=== PATIENT | female | born 1990 | race Caucasian/White ===

== ENCOUNTER → 2016-10-11 | Outpatient (CLI) | payer BC, OTHER ==
[~2016-10-11] MED LIST: ACET50TA PO; IBUP80TA PO; VITAPRTA PO
--- NOTE | 2016-10-11 15:06 | REP ---
OB ULTRASOUND: Real-time sonographic evaluation of the gravid uterus is performed. There is a single living intrauterine gestation. The estimated gestational age is 19 weeks 6 days with EDC 03/01/2017. Biometry and Growth: BPD 47 mm = 20 weeks 1 day HC 171 mm = 19 weeks 5 days AC 147 mm = 20 weeks 0 days FL 33 mm = 20 weeks 1 day HC/AC ratio 1.16 within normal range. Estimated weight 329 grams, 55th percentile. SEEN/GROSSLY UNREMARKABLE Lateral ventricles Left choroid plexus cyst seen measuring 6 x 4 mm. Posterior fossa Yes Upper lip Yes Four-chamber heart Yes LVOT Yes RVOT Yes Stomach Yes Cord insertion Yes Three vessel cord Yes Kidneys Yes Bladder Yes Spine Yes Cervical length: Cervix closed and measures 4.3 cm in length. heart rate: 150 beats per minute. position: Breech. Placenta: Placenta is posterior and grade 0 with no previa or abruption. Amniotic fluid: Within normal limits. Cystic structure of the left ovary may represent a corpus luteum measuring 1.9 x 2.1 x 1.8 cm. Signed by Hai Gardner MD 10/11/2016 05:26 P
== END ==
LOC: M SMT 12:54
PROVIDERS: ATTEND Obstetrics & Gynecology
DX: Z36 Encounter for antenatal screening of mother (principal); Z3A.19 19 weeks gestation of pregnancy

== ENCOUNTER → 2016-11-27 | Outpatient (CLI) | payer BC, OTHER ==
[2016-11-27 13:16] LABS: BASO % 0.1 % (0.0-1.0); EOS # 0.1 K/mm3 (0.0-0.50); EOS % 1.2 % (0.0-3.0); LARGE UNSTAINED CELL # 0.2 K/mm3 (0.0-0.4); LYMPH # 1.5 K/mm3 (1.5-6.5); LYMPH % 22.7 % (24.0-44.0); MEAN CORPUSCULAR HEMOGLOBIN 23.5 pg (27.0-33.0); MEAN CORPUSCULAR HGB CONC 30.5 g/dl (32.0-36.5); MEAN CORPUSCULAR VOLUME 77.1 fl (80.0-96.0); MONO # 0.2 K/mm3 (0.0-0.8); MONO % 3.3 % (0.0-5.0); NEUTROPHILS # 4.5 K/mm3 (1.8-7.7); NEUTROPHILS % 69.7 % (36.0-66.0); PLATELET COUNT, AUTOMATED 242 k/mm3 (150-450); RED CELL DISTRIBUTION WIDTH 13.8 % (11.5-14.5); WHITE BLOOD COUNT 6.5 K/mm3 (4.0-10.0)
== END ==
LOC: M SMT 11:27
PROVIDERS: ATTEND Specialist
DX: Z34.82 Encounter for supervision of other normal pregnancy, second trimester (principal); Z36 Encounter for antenatal screening of mother; Z3A.00 Weeks of gestation of pregnancy not specified

== ENCOUNTER → 2017-02-05 | Outpatient (REF) | payer BC, OTHER | LOC: M LAB REF 13:04 | PROVIDERS: ATTEND Advanced Practice Midwife | DX: Z34.83 Encounter for supervision of other normal pregnancy, third trimester (principal) ==

== ENCOUNTER 2017-03-05 16:56 | Inpatient (IN) | payer BC, OTHER ==
[2017-03-05] VITALS (22 sets, daily range): BP systolic 102–137; BP diastolic 65–97
[~2017-03-05] VITALS: Ht 182.9 cm; Wt 112.0 kg
[2017-03-05] MEDS ORDERED: LACTATED RINGER'S 1000 ML IV STA (17:13)
[2017-03-05] MEDS ORDERED: PENICILLIN G POTASSIUM IV 5 MU in D5W MINI-BAG PLUS 100 ML IV STA (17:13)
--- NOTE | 2017-03-05 18:02 | HPE ---
DATE OF ADMISSION: 03/05/2017 Ashlyn is a 26-year-old 3, para 1-0-1-1 at 40-5/7 weeks gestation with an EDC of 02/28/2017, based on last normal period confirmed by first trimester ultrasound. She presents to labor and delivery today with report of onset of uncomfortable contractions that started at approximately 03:45 a.m. and have gotten progressively closer and more uncomfortable throughout the day. She does deny vaginal bleeding and leakage of fluid. Fetus has been active. care initiated at [facility] in the first trimester. course has been uncomplicated. OBSTETRICAL HISTORY: April 2015 she had a spontaneous vaginal delivery at 39-2/7 weeks gestation for a 7 pounds 11 ounce female. January 2016 she had a spontaneous miscarriage. OBSTETRICAL LABS: Blood type is A+, antibody screen negative, rubella immune, VDRL nonreactive. Urine culture no growth. Hep B surface antigen negative, HIV negative. Hep C antibody nonreactive. Gonorrhea and chlamydia negative. She did decline all genetic serum screening markers. Gestational diabetic screening 90. Group B streptococcus (GBS) is positive. PAST MEDICAL HISTORY: Seasonal allergies and history of an abnormal Pap. SURGERIES: None. FAMILY HISTORY: Noncontributory. SOCIAL HISTORY: The patient is . Her is at bedside and supportive. She is a nonsmoker. Denies alcohol or drug use. No history of sexually transmitted diseases (STDs). Denies history of abuse physical, sexual and emotional. ALLERGIES: No known drug allergies. CURRENT MEDICATIONS: - vitamins. OBJECTIVE: Temperature 98.3, pulse 71, respirations 18, blood pressure 137/97. heart rate is 140 with moderate variability, positive excels no decelerations observed. Carlo approximately every 5 minutes. Abdomen is gravid, cephalic presentation. Estimated weight 8 pounds. Sterile vaginal exam 4 cm dilated 80% effaced, minus two station, bulging bag of water, positive scant bloody show exam was performed in the office. ASSESSMENT: Intrauterine at 40-5/7 weeks. heart rate category one active labor. PLAN: Admit the patient to labor and delivery. Labs including a pre-eclamptic profile and a spot urine, intravenous (IV) fluid bolus. Start IV antibiotics for GBS prophylaxis. Patient may consider an epidural for her labor coping at this point. Once she has been treated post 4 hours for GBS prophylaxis I will consider artificial rupture or membranes (AROM) IV Pitocin to augment her labor. I do anticipate continued labor and a spontaneous vaginal delivery.
[2017-03-05] MEDS ORDERED: SUDA30TA PO (18:20)
[2017-03-05 18:25] LABS: MEAN CORPUSCULAR HEMOGLOBIN 21.3 pg (27.0-33.0); MEAN CORPUSCULAR HGB CONC 30.6 g/dl (32.0-36.5); MEAN CORPUSCULAR VOLUME 69.6 fl (80.0-96.0); RED CELL DISTRIBUTION WIDTH 16.2 % (11.5-14.5); WHITE BLOOD COUNT 10.1 K/mm3 (4.0-10.0)
[2017-03-05 19:35] LABS: ALT/SGPT 13 U/L (12-78); AST/SGOT 13 U/L (15-37); BILIRUBIN,TOTAL 0.2 MG/DL (0.2-1.0); CREATININE FOR GFR 0.63 MG/DL (0.55-1.02); GLOMERULAR FILTRATION RATE > 60.0 (>60); URIC ACID 2.7 MG/DL (2.6-6.0)
[2017-03-05] MEDS ORDERED: FENTANYL 2MCG/ML ROPIVACAINE 0.2% IN 0.9% NACL 200ML IVBAG As Ordered ONE (20:39)
[2017-03-05] MEDS ORDERED: FENTANYL/ROPIVACAINE/NACL BAG 200 ML EPIDURAL SCH (22:00)
[2017-03-05] MEDS ORDERED: NALOXONE INJ 0.4 MG/1 ML VIAL (J2310) IV PRN (22:00)
[2017-03-05] MEDS ORDERED: REFRIGERATOR IV KEYS XX PRN (22:00)
[2017-03-05] MEDS ORDERED: EPIDURAL COMMENT XX SCH (22:00)
[2017-03-05] MEDS ORDERED: EPIDURAL/PCA KEYS XX PRN (22:00)
[2017-03-05] MEDS ORDERED: ONDANSETRON 4MG/2ML VIAL (J2405) IV PRN (22:00)
[2017-03-05] MEDS ORDERED: LACTATED RINGER'S 1000 ML IV PRN (22:00)
[2017-03-05] MEDS ORDERED: ePHEDrine SULFATE 25 MG/5 ML(5MG/ML) SYRINGE IV PRN (22:00)
[2017-03-05] MEDS ORDERED: diphenhydrAMINE INJ 50MG/ML VIAL (J1200) IV PRN (22:00)
[2017-03-05] MEDS ORDERED: PENICILLIN G POTASSIUM IV 2.5 MU in D5W 100 ML IV SCH (22:00)
[2017-03-05] MEDS ORDERED: OXYTOCIN DRIP 30 UNITS in APPROPRIATE DILUENT 1 EA IV SCH (22:30)
[2017-03-06] VITALS (7 sets, daily range): BP systolic 117–146; BP diastolic 73–87
[2017-03-06] MEDS ORDERED: OXYTOCIN DRIP 30 UNITS in APPROPRIATE DILUENT 1 EA IV SCH (00:24)
[2017-03-06] MEDS ORDERED: ACETAMINOPHEN 500 MG TAB PO PRN (00:30)
[2017-03-06] MEDS ORDERED: MEASLES,MUMPS,RUBELLA VACCINE INJ (MMR-II) (90707) SC SCH (00:30)
[2017-03-06] MEDS ORDERED: METHYLERGONOVINE MALEATE 0.2 MG TAB PO PRN (00:30)
[2017-03-06] MEDS ORDERED: ANUSOL HC CREAM 30GM TOP PRN (00:30)
[2017-03-06] MEDS ORDERED: RHOGAM 300 MCG (1500 IU) INJ (J2790) IM SCH (00:30)
[2017-03-06] MEDS ORDERED: DIBUCAINE 1% OINTMENT 30GM TOP PRN (00:30)
[2017-03-06] MEDS ORDERED: DOCUSATE SODIUM 100 MG CAP PO PRN (00:30)
[2017-03-06 00:34] LABS: CORD GAS ABE V -2.4; CORD GAS O2 SAT V 82.2 %; CORD GAS PCO2 V 36.8 mmHg; CORD GAS PH V 7.394 UNITS; CORD GAS PO2 V 36.4 mmHg; CORD GAS SBC V 22.1 MEQ/L; CORD GAS TCO2 V 23.1 MEQ/L
--- NOTE | 2017-03-06 00:51 | DN ---
DATE: 03/06/2017 Ashlyn is a 26-year-old, 3, para 2-0-1-2 now, who was admitted to labor and delivery in active labor. She progressed to full dilation at 2330. She pushed to a normal spontaneous vaginal delivery of a live male in occiput anterior (OA) position with restitution to right occiput transverse (ROT) position at 2341. There was a nuchal cord times one loose that was reduced with somersault maneuver at the time of delivery. The shoulders delivered with gentle downward guidance, and the corpus immediately followed. The was placed on the maternal abdomen crying and active. His mouth and nares were bulb suctioned. The cord was clamped times two and cut by the father of the baby. A spontaneous expulsion of an intact placenta with 3-vessel cord by Valderrama mechanism was at 2346. Uterine hemostasis achieved with uterine fundal massage and intravenous (IV) Pitocin rapid infusion. Estimated blood loss 350 mL. Perineum and vagina inspected. Noted to have first-degree midline laceration and a right labial laceration. The laceration was repaired with #3-0 Rapide in the usual fashion. [place] male weighed 7 pounds 8 ounces, 3410 grams, scores 9 and 9. Family have named their son Jaylen. The mom plans to breastfeed. At the close of delivery, the lap counts, needle counts, and instrument counts were correct and verified.
[2017-03-06] MEDS: PRENATAL VITAMIN TAB PO SCH (08:51)
[2017-03-06] MEDS: IBUPROFEN 800 MG TAB PO PRN ×2 (08:52→23:47)
[2017-03-07 06:19] VITALS: BP 121/86
[2017-03-07] MEDS ORDERED: IBUP-1114 PO (07:43)
[2017-03-07] MEDS: PRENATAL VITAMIN TAB PO SCH (08:22)
[2017-03-07] MEDS ORDERED: ADACEL/BOOSTRIX VACCINE (DIPHTH/PERTUSS/ACELL/TETANUS)0.5ML SYR (90715) IM ONE (09:00)
== END 2017-03-07 10:10 | disposition home or self-care (01) | DRG 560 ==
LOC: M LDI 16:56 → M OBS 03-06 01:53
PROVIDERS: ADMIT Advanced Practice Midwife; ATTEND Advanced Practice Midwife
PROC: 10E0XZZ Delivery of Products of Conception, External Approach (ICD-10-PCS; principal; 2017-03-06)
PROC: 0HQ9XZZ Repair Perineum Skin, External Approach (ICD-10-PCS; 2017-03-06)
DX: O48.0 Post-term pregnancy (principal); O69.82X0 Labor and delivery complicated by other cord entanglement, without compression, not applicable or unspecified; Z37.0 Single live birth; Z3A.40 40 weeks gestation of pregnancy; Z79.899 Other long term (current) drug therapy; O70.0 First degree perineal laceration during delivery

== ENCOUNTER → 2017-11-28 | Outpatient (REF) | payer OTHER | LOC: M LAB REF 09:00 | DX: J02.9 Acute pharyngitis, unspecified (principal) | CPT/HCPCS: 87070 ==

== ENCOUNTER 2018-03-26 08:54 | Day surgery (SDC) | payer BC, OTHER ==
[2018-03-26] MEDS ORDERED: LIDOCAINE 1% MDV 20ML VIAL SQ (09:00)
[2018-03-26] MEDS: LR 1,000 ML IV (09:30)
[2018-03-26 09:43] LABS: CONTROL LINE UCG INT CTR LINE PRESENT; URINE PREG TEST NEGATIVE (NEGATIVE)
[2018-03-26] MEDS ORDERED: ONDANSETRON 4MG/2ML VIAL (J2405) As Ordered (10:02)
[2018-03-26] MEDS ORDERED: dexameTHASONE 4 MG/ML 1ML VIAL (J1100) As Ordered (10:02)
[2018-03-26] MEDS ORDERED: PROPOFOL 200 MG/20 ML VIAL As Ordered ×2 (10:02→10:06)
[2018-03-26] MEDS ORDERED: LIDOCAINE 2% INJ 100 MG/5 ML SDV (FOR ANES.) As Ordered (10:02)
[2018-03-26] MEDS ORDERED: MIDAZOLAM INJ 2 MG/2 ML VIAL (J2250) As Ordered (10:02)
[2018-03-26] MEDS ORDERED: fentaNYL 100 MCG/2 ML INJECTION (J3010) As Ordered (10:02)
[2018-03-26] MEDS ORDERED: SUCCINYLCHOLINE 100 MG/5 ML SYRINGE (J0330) As Ordered (10:02)
[2018-03-26] MEDS: BUPIVACAINE HCL 0.5% 10 ML VIAL As Ordered (10:13)
[2018-03-26] MEDS: BUPIVACAINE/EPIN 0.5% 30 ML VIAL As Ordered (10:13)
[2018-03-26] MEDS: LIDOCAINE W/EPINEPHRINE 1% 20ML VIAL As Ordered (10:13)
[2018-03-26] MEDS ORDERED: METOCLOPRAMIDE INJ 10MG/2ML VIAL (J2765) As Ordered (10:34)
[2018-03-26] MEDS ORDERED: ONDANSETRON 4MG/2ML VIAL (J2405) IV (11:00)
[2018-03-26] MEDS ORDERED: LR 1,000 ML IV ×2 (11:00)
[2018-03-26] MEDS ORDERED: fentaNYL 100 MCG/2 ML INJECTION (J3010) IV (11:00)
[2018-03-26] MEDS ORDERED: PERCOCET 5MG/325MG TAB PO (11:00)
== END 2018-03-26 12:27 | disposition home or self-care (01) ==
LOC: M SDC 08:54
DX: J35.01 Chronic tonsillitis (principal); Z91.09 Other allergy status, other than to drugs and biological substances
CPT/HCPCS: 42826

== ENCOUNTER 2018-03-29 19:12 | Emergency (ER) | payer BC, OTHER ==
[2018-03-29] MEDS: NS 1,000 ML IV ×2 (20:14)
[2018-03-29 20:20] LABS: BASO % 0.2 % (0.0-1.0); EOS # 0.1 10^3/uL (0.0-0.50); EOS % 1.5 % (0.0-3.0); HEMATOCRIT 38.3 % (36.0-47.0); HEMOGLOBIN 12.4 g/dl (12.0-15.5); IMMATURE GRANULOCYTE % 0.2 % (0-3.0); LYMPH # 2.3 10^3/uL (1.5-6.5); LYMPH % 26.4 % (24.0-44.0); MEAN CORPUSCULAR HEMOGLOBIN 25.5 pg (27.0-33.0); MEAN CORPUSCULAR HGB CONC 32.4 g/dl (32.0-36.5); MEAN CORPUSCULAR VOLUME 78.6 fl (80.0-96.0); MONO # 0.6 10^3/uL (0.0-0.8); MONO % 7.2 % (0.0-5.0); NEUTROPHILS # 5.6 10^3/uL (1.8-7.7); NEUTROPHILS % 64.5 % (36.0-66.0); PLATELET COUNT, AUTOMATED 246 10^3/uL (150-450); RED BLOOD COUNT 4.87 10^6/uL (4.00-5.40); RED CELL DISTRIBUTION WIDTH 14.3 % (11.5-14.5); WHITE BLOOD COUNT 8.7 10^3/uL (4.0-10.0)
[2018-03-29] MEDS: HYDROcodone/APAP LIQUID 7.5-325MG 15ML UDC (LORTAB ELIXIR) PO ×2 (21:30)
== END 2018-03-29 21:50 | disposition home or self-care (01) ==
LOC: M ED 19:12
DX: J95.830 Postprocedural hemorrhage of a respiratory system organ or structure following a respiratory system procedure (principal); Z91.048 Other nonmedicinal substance allergy status; Z79.3 Long term (current) use of hormonal contraceptives
CPT/HCPCS: 85025

== ENCOUNTER → 2018-10-23 | Outpatient (REF) | payer BC, OTHER ==
[~2018-10-23] MED LIST changes: +ACET1TAB16 PO; -ACET50TA PO; +IBUP-1114 PO; +MAPA500T2 PO; +MICROGESTIN PO; +SUDA30TA PO
[2018-10-29 14:44] LABS: HPV HYBRID CAPTURE II Negative (Negative)
== END ==
LOC: M LAB REF 17:22
PROVIDERS: ATTEND Advanced Practice Midwife
DX: Z12.4 Encounter for screening for malignant neoplasm of cervix (principal); R87.610 Atypical squamous cells of undetermined significance on cytologic smear of cervix (ASC-US)
CPT/HCPCS: 87624; G0123

== ENCOUNTER 2018-11-02 14:45 | Outpatient (RCR) | payer BC, OTHER | END 2018-11-05 | LOC: M PT 14:45 | PROVIDERS: ATTEND Otolaryngology | DX: M26.609 Unspecified temporomandibular joint disorder, unspecified side (principal) ==

== ENCOUNTER 2018-11-20 12:30 | Outpatient (RCR) | payer BC, OTHER | END 2018-12-03 | LOC: M PT 12:30 | PROVIDERS: ATTEND Otolaryngology | DX: M26.609 Unspecified temporomandibular joint disorder, unspecified side (principal) ==

== ENCOUNTER 2019-03-31 21:23 | Emergency (ER) | payer BC, OTHER ==
[~2019-03-31] VITALS: Ht 182.9 cm; Wt 113.6 kg
[2019-03-31] MEDS ORDERED: LARI1TAB3 (21:28)
[2019-03-31] MEDS ORDERED: ACETAMINOPHEN TAB 650MG DOSE (2X325MG) PO ONE (22:30)
[2019-03-31 23:19] VITALS: BP 140/89
--- NOTE | 2019-04-01 06:09 | REP ---
Clinical: There are trauma. Technique: Alan and bilateral lateral views of the nasal bones. Findings: Lateral view suggest the possibility of a very subtle nondisplaced nasal bone fracture and correlation is recommended. No prior exams for comparison. Impression: Cannot exclude very subtle nondisplaced nasal bone fracture. Electronically Signed by José Miguel Coffey MD 04/01/2019 06:00 A
== END 2019-03-31 23:20 | disposition home or self-care (01) ==
LOC: M ED 21:23
DX: S02.2XXA Fracture of nasal bones, initial encounter for closed fracture (principal); X58.XXXA Exposure to other specified factors, initial encounter; Y92.9 Unspecified place or not applicable; Y93.9 Activity, unspecified; Y99.9 Unspecified external cause status; Z79.899 Other long term (current) drug therapy; Z91.89 Other specified personal risk factors, not elsewhere classified

== ENCOUNTER 2019-04-06 10:56 | Day surgery (SDC) | payer BC, OTHER ==
[~2019-04-06] VITALS: Ht 182.9 cm; Wt 112.5 kg
[~2019-04-06 10:56] MED LIST changes: +EPINEPHrine 1MG/ML INJ 30ML MD-VIAL As Ordered ONE; +LARI1TAB3; +LIDOCAINE W/EPINEPHRINE 1% 20ML VIAL As Ordered ONE; +LR 1,000 ML IV ONE; +METHYLENE BLUE 0.5% (5MG/ML) 10 ML AMP (PROVAYBLUE)(Q9968 PER 1MG) As Ordered ONE
[2019-04-06 11:18] LABS: URINE PREG TEST NEGATIVE (NEGATIVE)
[2019-04-06] MEDS ORDERED: fentaNYL 100 MCG/2 ML INJECTION (J3010) As Ordered ONE ×2 (11:58→13:08)
[2019-04-06] MEDS ORDERED: MIDAZOLAM INJ 2 MG/2 ML VIAL (J2250) As Ordered ONE (11:58)
[2019-04-06] MEDS ORDERED: PROPOFOL 200 MG/20 ML VIAL As Ordered ONE (11:58)
[2019-04-06] MEDS ORDERED: LIDOCAINE 2% INJ 100 MG/5 ML SDV (FOR ANES.) As Ordered ONE (11:58)
[2019-04-06] MEDS ORDERED: dexameTHASONE 4 MG/ML 1ML VIAL (J1100) As Ordered ONE (12:39)
[2019-04-06] MEDS ORDERED: ONDANSETRON 4MG/2ML VIAL (J2405) As Ordered ONE (12:39)
[2019-04-06] MEDS ORDERED: PERCOCET 5MG/325MG TAB As Ordered ONE (13:03)
[2019-04-06] MEDS ORDERED: METOCLOPRAMIDE INJ 10MG/2ML VIAL (J2765) As Ordered ONE (13:04)
[2019-04-06] MEDS: fentaNYL 100 MCG/2 ML INJECTION (J3010) IV PRN ×4 (13:10→13:37)
[2019-04-06] MEDS ORDERED: PROMETHAZINE INJ 25 MG/ML VIAL (J2550) IV PRN (13:15)
[2019-04-06] MEDS ORDERED: LR 1,000 ML IV SCH (13:15)
[2019-04-06] MEDS ORDERED: PERCOCET 5MG/325MG TAB PO PRN (13:15)
[2019-04-06] MEDS ORDERED: METOCLOPRAMIDE INJ 10MG/2ML VIAL (J2765) IV PRN (13:15)
[2019-04-06 14:28] VITALS: BP 123/73
== END 2019-04-06 14:30 | disposition home or self-care (01) ==
LOC: M SDC 10:56
PROVIDERS: ATTEND Specialist
DX: S02.2XXA Fracture of nasal bones, initial encounter for closed fracture (principal); W50.0XXA Accidental hit or strike by another person, initial encounter; Y92.89 Other specified places as the place of occurrence of the external cause; Y99.9 Unspecified external cause status; Y93.9 Activity, unspecified
CPT/HCPCS: 21320; 84703; J1100; J2250; J2405; J2765; J3010; Q9968

== ENCOUNTER → 2020-03-02 | Outpatient (REF) | payer OTHER ==
[~2020-03-02] MED LIST changes: -EPINEPHrine 1MG/ML INJ 30ML MD-VIAL As Ordered ONE; -LIDOCAINE W/EPINEPHRINE 1% 20ML VIAL As Ordered ONE; -LR 1,000 ML IV ONE; -METHYLENE BLUE 0.5% (5MG/ML) 10 ML AMP (PROVAYBLUE)(Q9968 PER 1MG) As Ordered ONE
== END ==
LOC: M SFHCWAGY 08:53
PROVIDERS: ATTEND Advanced Practice Midwife
DX: R87.612 Low grade squamous intraepithelial lesion on cytologic smear of cervix (LGSIL) (principal); Z12.4 Encounter for screening for malignant neoplasm of cervix
CPT/HCPCS: 87624; G0123

== ENCOUNTER → 2021-03-16 | Outpatient (REF) | payer OTHER, BC | LOC: M SFHCWAGY 10:05 | PROVIDERS: ATTEND Advanced Practice Midwife | DX: Z12.4 Encounter for screening for malignant neoplasm of cervix (principal); R87.610 Atypical squamous cells of undetermined significance on cytologic smear of cervix (ASC-US); Z77.9 Other contact with and (suspected) exposures hazardous to health | CPT/HCPCS: 87624; G0123 ==

== ENCOUNTER → 2021-03-23 | Outpatient (REF) | payer BC ==
[2021-03-23 10:54] LABS: HEMATOCRIT 44.2 % (36.0-47.0); HEMOGLOBIN 14.4 g/dl (12.0-15.5); MEAN CORPUSCULAR HEMOGLOBIN 28.5 pg (27.0-33.0); MEAN CORPUSCULAR HGB CONC 32.6 g/dl (32.0-36.5); MEAN CORPUSCULAR VOLUME 87.4 fl (80.0-96.0); PLATELET COUNT, AUTOMATED 275 10^3/uL (150-450); RED BLOOD COUNT 5.06 10^6/uL (4.00-5.40)
[2021-03-23 11:06] LABS: ALBUMIN 3.4 GM/DL (3.2-5.2); ALT/SGPT 35 U/L (12-78); BILIRUBIN,TOTAL 0.3 MG/DL (0.2-1.0); BLOOD UREA NITROGEN 12 MG/DL (7-18); CALCIUM LEVEL 8.5 MG/DL (8.5-10.1); CARBON DIOXIDE LEVEL 30 MEQ/L (21-32); CHLORIDE LEVEL 109 MEQ/L (98-107); CREATININE FOR GFR 0.75 MG/DL (0.55-1.30); FERRITIN 24 NG/ML (8-252); GLOMERULAR FILTRATION RATE > 60.0 (>60); GLUCOSE, FASTING 62 MG/DL (70-100); SODIUM LEVEL 142 MEQ/L (136-145); TOTAL PROTEIN 6.7 GM/DL (6.4-8.2)
== END ==
LOC: M PLALAB 08:15
PROVIDERS: ATTEND Advanced Practice Midwife
DX: L65.9 Nonscarring hair loss, unspecified (principal); Z01.419 Encounter for gynecological examination (general) (routine) without abnormal findings

== ENCOUNTER → 2021-04-13 | Outpatient (REF) | payer OTHER, BC | LOC: M SFHCWAGY 17:26 | PROVIDERS: ATTEND Obstetrics & Gynecology | DX: R87.612 Low grade squamous intraepithelial lesion on cytologic smear of cervix (LGSIL) (principal) ==

== ENCOUNTER → 2021-09-25 | Outpatient (CLI) | payer BC, OTHER ==
--- NOTE | 2021-09-25 16:48 | REP ---
INDICATION: OF UNKNOWN ANATOMIC LOCATION COMPARISON: None. TECHNIQUE: Transabdominal and transvaginal 1st trimester obstetrical ultrasound with color Doppler evaluation. FINDINGS: Anteverted uterus measures and there is a definable live in the high right side of the uterus consistent with cornual/interstitial . Findings include gestational sac with yolk sac and pole. heart rate equals 75 beats per minute. No subchorionic hemorrhage or significant hemorrhagic fluid in the endocervical canal is identified. No pelvic free fluid is appreciated. The bilateral maternal ovaries are normal in vascularity without torsion. Right ovary measures 3.2 x 2.4 x 2.0 cm and includes 2 cm corpus luteum cyst. Left ovary measures 3.1 x 3.1 x 2.3 cm and includes 2.8 cm cyst. IMPRESSION: 1. Findings consistent with right cornual/interstitial . <Electronically signed by José Miguel Coffey > 09/25/21 [id number]
== END ==
LOC: M WHC 15:49
PROVIDERS: ATTEND Obstetrics & Gynecology
DX: O36.80X0 Pregnancy with inconclusive fetal viability, not applicable or unspecified (principal); Z3A.00 Weeks of gestation of pregnancy not specified

== ENCOUNTER → 2021-09-26 | Outpatient (CLI) | payer BC, OTHER ==
[2021-09-26 11:43] LABS: HEMATOCRIT 42.6 % (36.0-47.0); HEMOGLOBIN 13.7 g/dl (12.0-15.5); MEAN CORPUSCULAR HEMOGLOBIN 27.8 pg (27.0-33.0); MEAN CORPUSCULAR HGB CONC 32.2 g/dl (32.0-36.5); MEAN CORPUSCULAR VOLUME 86.4 fl (80.0-96.0); PLATELET COUNT, AUTOMATED 253 10^3/uL (150-450); RED BLOOD COUNT 4.93 10^6/uL (4.00-5.40); WHITE BLOOD COUNT 8.4 10^3/uL (4.0-10.0)
[2021-09-26 12:25] LABS: ALBUMIN 3.8 GM/DL (3.2-5.2); ALT/SGPT 26 U/L (12-78); BILIRUBIN,TOTAL 0.4 MG/DL (0.2-1.0); BLOOD UREA NITROGEN 8 MG/DL (7-18); CALCIUM LEVEL 9.1 MG/DL (8.5-10.1); CARBON DIOXIDE LEVEL 28 MEQ/L (21-32); CHLORIDE LEVEL 106 MEQ/L (98-107); CREATININE FOR GFR 0.71 MG/DL (0.55-1.30); GLOMERULAR FILTRATION RATE > 60.0 (>60); GLUCOSE, FASTING 88 MG/DL (70-100); HCG, SERUM QUANTITATIVE 3007 MIU/ML; POTASSIUM SERUM 4.4 MEQ/L (3.5-5.1); SODIUM LEVEL 139 MEQ/L (136-145); TOTAL PROTEIN 7.1 GM/DL (6.4-8.2)
== END ==
LOC: M PLALAB 09:55
PROVIDERS: ATTEND Obstetrics & Gynecology
DX: O36.80X0 Pregnancy with inconclusive fetal viability, not applicable or unspecified (principal); Z3A.00 Weeks of gestation of pregnancy not specified

== ENCOUNTER → 2021-09-27 | Outpatient (CLI) | payer BC, OTHER | LOC: M PLALAB 15:48 | PROVIDERS: ATTEND Obstetrics & Gynecology | DX: O36.80X0 Pregnancy with inconclusive fetal viability, not applicable or unspecified (principal); Z3A.00 Weeks of gestation of pregnancy not specified ==

== ENCOUNTER → 2021-10-04 | Outpatient (CLI) | payer BC, OTHER | LOC: M PLALAB 11:52 | PROVIDERS: ATTEND Obstetrics & Gynecology | DX: O03.9 Complete or unspecified spontaneous abortion without complication (principal) ==

== ENCOUNTER → 2021-10-10 | Outpatient (CLI) | payer BC, OTHER | LOC: M PLALAB 14:41 | PROVIDERS: ATTEND Advanced Practice Midwife | DX: O03.9 Complete or unspecified spontaneous abortion without complication (principal); Z3A.00 Weeks of gestation of pregnancy not specified ==

== ENCOUNTER → 2022-02-04 | Outpatient (CLI) | payer BC, OTHER ==
[~2022-02-04] MED LIST changes: -ACET1TAB16 PO; +ACET300T48 PO
== END ==
LOC: M PLALAB 13:56
PROVIDERS: ATTEND Advanced Practice Midwife
DX: O20.0 Threatened abortion (principal)

== ENCOUNTER → 2022-02-18 | Outpatient (CLI) | payer BC, OTHER ==
[2022-02-21 04:08] LABS: BETA-2 GLYCOPROTEIN I ABY IGA <9 (0-25); BETA-2 GLYCOPROTEIN I ABY IGG <9 (0-20); BETA-2 GLYCOPROTEIN I ABY IGM <9 (0-32); CARDIOLIPIN IGA ANTIBODY <9 APL U/mL (0-11); CARDIOLIPIN IGG ANTIBODY <9 GPL U/mL (0-14); CARDIOLIPIN IGM ANTIBODY <9 MPL U/mL (0-12)
== END ==
LOC: M PLALAB 13:50
PROVIDERS: ATTEND Obstetrics & Gynecology
DX: N96 Recurrent pregnancy loss (principal)

== ENCOUNTER → 2022-03-07 | Outpatient (CLI) | payer BC, OTHER | LOC: M PLALAB 10:16 | PROVIDERS: ATTEND Obstetrics & Gynecology | DX: O36.80X0 Pregnancy with inconclusive fetal viability, not applicable or unspecified (principal) ==

== ENCOUNTER → 2022-03-11 | Outpatient (CLI) | payer BC, OTHER | LOC: M PLALAB 13:02 | PROVIDERS: ATTEND Obstetrics & Gynecology | DX: O36.80X0 Pregnancy with inconclusive fetal viability, not applicable or unspecified (principal) ==

== ENCOUNTER → 2022-03-13 | Outpatient (CLI) | payer BC, OTHER | LOC: M PLALAB 12:16 | PROVIDERS: ATTEND Obstetrics & Gynecology | DX: O36.80X0 Pregnancy with inconclusive fetal viability, not applicable or unspecified (principal); Z3A.00 Weeks of gestation of pregnancy not specified ==

== ENCOUNTER → 2022-03-20 | Outpatient (CLI) | payer BC, OTHER | LOC: M WHC 13:00 | PROVIDERS: ATTEND Obstetrics & Gynecology | DX: O36.80X0 Pregnancy with inconclusive fetal viability, not applicable or unspecified (principal); Z3A.01 Less than 8 weeks gestation of pregnancy ==

== ENCOUNTER → 2022-05-19 | Outpatient (CLI) | payer BC, OTHER | LOC: M LABSMTC 09:15 | PROVIDERS: ATTEND Anesthesiology | DX: Z01.818 Encounter for other preprocedural examination (principal); Z11.52 Encounter for screening for COVID-19 ==

== ENCOUNTER 2022-05-24 06:31 | Day surgery (SDC) | payer BC, OTHER ==
[~2022-05-24] VITALS: Ht 182.9 cm; Wt 117.9 kg
[~2022-05-24 06:31] MED LIST changes: +LR 1,000 ML IV SCH
[2022-05-24] MEDS ORDERED: LR 1,000 ML IV SCH ×2 (06:40→09:10)
[2022-05-24] MEDS ORDERED: SILVER NITRATE APPLICATOR (1 = QTY 10) As Ordered ONE (07:09)
[2022-05-24] MEDS ORDERED: LIDOCAINE 1% SDV 30ML VIAL As Ordered ONE (07:10)
[2022-05-24 07:13] LABS: HEMATOCRIT 43.5 % (36.0-47.0); HEMOGLOBIN 14.1 g/dl (12.0-15.5); MEAN CORPUSCULAR HEMOGLOBIN 27.4 pg (27.0-33.0); MEAN CORPUSCULAR HGB CONC 32.4 g/dl (32.0-36.5); MEAN CORPUSCULAR VOLUME 84.5 fl (80.0-96.0); PLATELET COUNT, AUTOMATED 276 10^3/uL (150-450); RED BLOOD COUNT 5.15 10^6/uL (4.00-5.40); WHITE BLOOD COUNT 7.9 10^3/uL (4.0-10.0)
[2022-05-24] MEDS ORDERED: dexameTHASONE 4 MG/ML 1ML VIAL (J1100 PER 1MG) As Ordered ONE (07:45)
[2022-05-24] MEDS ORDERED: METOCLOPRAMIDE INJ 10MG/2ML VIAL (J2765 PER 1) As Ordered ONE (07:45)
[2022-05-24] MEDS ORDERED: ONDANSETRON 4MG 2ML VIAL As Ordered ONE (07:45)
[2022-05-24] MEDS ORDERED: ACETAMINOPHEN 1000MG 100ML IV BTL (OFIRMEV) (J0131 PER 10MG) As Ordered ONE (07:45)
[2022-05-24] MEDS ORDERED: propofoL 200 MG/20 ML VIAL As Ordered ONE (07:45)
[2022-05-24] MEDS ORDERED: fentaNYL 100 MCG/2 ML INJECTION As Ordered ONE (07:45)
[2022-05-24] MEDS ORDERED: LIDOCAINE 2% 100MG/5ML SDV (FOR ANES.) As Ordered ONE (07:45)
[2022-05-24] MEDS ORDERED: MIDAZOLAM INJ 2MG/2ML VIAL (J2250 PER 1MG) As Ordered ONE (07:45)
[2022-05-24] MEDS ORDERED: KETOROLAC 60MG 2ML VIAL As Ordered ONE (07:45)
[2022-05-24] MEDS ORDERED: fentaNYL 100 MCG/2 ML INJECTION IV PRN (09:10)
[2022-05-24] MEDS ORDERED: MORPHINE 2 MG/ML 1ML VIAL IV PRN (09:10)
[2022-05-24] MEDS ORDERED: oxyCODONE 5MG TAB PO PRN (09:10)
[2022-05-24] MEDS ORDERED: ONDANSETRON 4MG 2ML VIAL IV PRN (09:10)
[2022-05-24 10:25] VITALS: BP 136/86
== END 2022-05-24 10:28 | disposition home or self-care (01) ==
LOC: M SDC 06:31
PROVIDERS: ATTEND Obstetrics & Gynecology
DX: Q51.22 Partial doubling of uterus (principal)
CPT/HCPCS: 36415; 58558; 81025; 85027; 86850; 86900; 86901; J0131; J1100; J1885; J2250; J2405; J2765; J3010

== ENCOUNTER → 2022-07-12 | Outpatient (CLI) | payer BC, OTHER ==
[~2022-07-12] MED LIST changes: -LR 1,000 ML IV SCH
== END ==
LOC: M WHC 09:34
PROVIDERS: ATTEND Obstetrics & Gynecology
DX: Z34.90 Encounter for supervision of normal pregnancy, unspecified, unspecified trimester (principal); Z3A.01 Less than 8 weeks gestation of pregnancy

== ENCOUNTER → 2022-08-22 | Outpatient (CLI) | payer BC, OTHER ==
[2022-08-22 11:25] LABS: HEMATOCRIT 40.8 % (36.0-47.0); HEMOGLOBIN 13.1 g/dl (12.0-15.5); MEAN CORPUSCULAR HEMOGLOBIN 27.5 pg (27.0-33.0); MEAN CORPUSCULAR HGB CONC 32.1 g/dl (32.0-36.5); MEAN CORPUSCULAR VOLUME 85.5 fl (80.0-96.0); PLATELET COUNT, AUTOMATED 254 10^3/uL (150-450); RED BLOOD COUNT 4.77 10^6/uL (4.00-5.40); WHITE BLOOD COUNT 6.5 10^3/uL (4.0-10.0)
[2022-08-22 12:47] LABS: HEPATITIS C VIRUS ABY INDEX 0.1 INDEX (<0.8); HIV 1&2 SCREEN CENTAUR NEGATIVE (NEGATIVE)
[2022-08-22 12:54] LABS: GC DNA AMPLIFICATION NEGATIVE (NEGATIVE)
== END ==
LOC: M PLALAB 08:55
PROVIDERS: ATTEND Obstetrics & Gynecology
DX: Z34.91 Encounter for supervision of normal pregnancy, unspecified, first trimester (principal)

== ENCOUNTER → 2022-10-14 | Outpatient (CLI) | payer BC, OTHER | LOC: M WHC 09:28 | PROVIDERS: ATTEND Advanced Practice Midwife | DX: Z34.82 Encounter for supervision of other normal pregnancy, second trimester (principal); Z3A.19 19 weeks gestation of pregnancy ==

== ENCOUNTER → 2022-11-26 | Outpatient (CLI) | payer BC, OTHER ==
[2022-11-26 13:33] LABS: HEMATOCRIT 36.7 % (36.0-47.0); HEMOGLOBIN 11.8 g/dl (12.0-15.5); MEAN CORPUSCULAR HEMOGLOBIN 27.3 pg (27.0-33.0); MEAN CORPUSCULAR HGB CONC 32.2 g/dl (32.0-36.5); MEAN CORPUSCULAR VOLUME 84.8 fl (80.0-96.0); PLATELET COUNT, AUTOMATED 242 10^3/uL (150-450); RED BLOOD COUNT 4.33 10^6/uL (4.00-5.40); WHITE BLOOD COUNT 8.8 10^3/uL (4.0-10.0)
[2022-11-26 19:37] LABS: GC DNA AMPLIFICATION NEGATIVE (NEGATIVE)
== END ==
LOC: M PLALAB 11:10
PROVIDERS: ATTEND Specialist
DX: Z34.82 Encounter for supervision of other normal pregnancy, second trimester (principal)

== ENCOUNTER → 2022-11-29 | Outpatient (CLI) | payer BC, OTHER | LOC: M WHC 12:32 | PROVIDERS: ATTEND Specialist | DX: Z34.82 Encounter for supervision of other normal pregnancy, second trimester (principal); Z3A.26 26 weeks gestation of pregnancy ==

== ENCOUNTER → 2023-02-10 | Outpatient (REF) | payer BC | LOC: M PLALAB 09:40 | PROVIDERS: ATTEND Obstetrics & Gynecology | DX: Z34.80 Encounter for supervision of other normal pregnancy, unspecified trimester (principal) ==

== ENCOUNTER → 2024-07-09 | Outpatient (CLI) | payer BC ==
[~2024-07-09] MED LIST changes: +PRENTAB29 PO
[2024-07-09 13:21] LABS: APPEARANCE, URINE CLEAR (CLEAR); BACTERIA, URINE AUTO NEGATIVE (NEGATIVE); BILIRUBIN, URINE AUTO NEGATIVE (NEGATIVE); BLOOD, URINE BLOOD 1+ (NEGATIVE); COLOR, URINE STRAW (YELLOW); GLUCOSE, URINE (UA) AUTO NEGATIVE (NEGATIVE); KETONE, URINE AUTO NEGATIVE (NEGATIVE); LEUKOCYTE ESTERASE, URINE AUTO NEGATIVE (NEGATIVE); NITRITE, URINE AUTO NEGATIVE (NEGATIVE); PROTEIN, URINE AUTO NEGATIVE (NEGATIVE); RBC, URINE AUTO 0 /HPF (0-3); SPECIFIC GRAVITY URINE AUTO 1.005 (1.002-1.035); SQUAMOUS EPITHELIAL CELL UR AU 1 /HPF (0-6); UROBILINOGEN, URINE AUTO 0.2 mg/dL (0.0-2.0); WBC, URINE AUTO 1 /HPF (0-3)
[2024-07-09 13:22] LABS: BASO % 0.5 % (0.0-1.0); EOS # 0.1 10^3/uL (0.0-0.5); EOS % 1.5 % (0.0-3.0); HEMATOCRIT 41.2 % (36.0-47.0); HEMOGLOBIN 13.3 g/dl (12.0-15.5); MEAN CORPUSCULAR HEMOGLOBIN 25.6 pg (27.0-33.0); MEAN CORPUSCULAR HGB CONC 32.3 g/dl (32.0-36.5); MEAN CORPUSCULAR VOLUME 79.2 fl (80.0-96.0); MONO # 0.4 10^3/uL (0.0-0.8); MONO % 6.7 % (2.0-8.0); NEUTROPHILS # 3.5 10^3/uL (1.5-8.5); PLATELET COUNT, AUTOMATED 259 10^3/uL (150-450); WHITE BLOOD COUNT 6.1 10^3/uL (4.0-10.0)
[2024-07-09 13:27] LABS: ALBUMIN 3.8 G/DL (3.2-5.2); ALKALINE PHOSPHATASE 111 U/L (46-116); ALT/SGPT 13 U/L (7.0-40); AST/SGOT 11 U/L (<34); BILIRUBIN,TOTAL 0.5 MG/DL (0.3-1.2); BLOOD UREA NITROGEN 10 MG/DL (9-23); CALCIUM LEVEL 9.5 MG/DL (8.5-10.1); CARBON DIOXIDE LEVEL 26 MMOL/L (20-31); CHLORIDE LEVEL 106 MMOL/L (98-107); CHOLESTEROL LEVEL 190 MG/DL (<200); CHOLESTEROL RISK RATIO 4.58 (<5); CREATININE FOR GFR 0.84 MG/DL (0.55-1.30); GLOMERULAR FILTRATION RATE > 60.0 (>60); GLUCOSE, FASTING 90 MG/DL (60-100); HDL CHOLESTEROL 41.4 MG/DL (>40); IRON (FE) 101 UG/DL (50-170); LDL CHOLESTEROL 122.8 MG/DL (<100); NON-HDL-C 148.6 MG/DL; POTASSIUM SERUM 4.1 MMOL/L (3.5-5.1); SODIUM LEVEL 138 MMOL/L (136-145); TOTAL PROTEIN 7.2 G/DL (5.7-8.2); TRIGLYCERIDES LEVEL 129 MG/DL (<150)
[2024-07-09 13:28] LABS: THYROID STIMULATING HORMONE 2.556 uIU/ML (0.55-4.78)
[2024-07-09 13:29] LABS: FREE T4 1.15 NG/DL (0.89-1.76); RHEUMATOID FACTOR QUANT 8.6 IU/ML (<14); TOTAL 25(OH) VITAMIN D 18.3 NG/ML (20.0-100.0)
[2024-07-09 13:31] LABS: THYROID PEROXIDASE ANTIBODY 32 U/ML (<60.0)
[2024-07-09 13:32] LABS: FREE T3 3.5 PG/ML (2.3-4.2)
[2024-07-09 13:33] LABS: THYROGLOBULIN ANTIBODY < 15.0 U/ML (<60.0)
[2024-07-09 13:34] LABS: ERYTHROCYTE SEDIMENTATION RATE 31 mm/hr (0-20)
[2024-07-12 13:07] LABS: ANA SCREEN, IFA NEGATIVE (NEGATIVE)
[2024-07-12 14:27] LABS: EBV AB TO NUCLEAR ANTIGEN > 600.00 U/mL (<18.00); EBV VIRAL CAPSID AG IGG > 750.00 U/mL (<18.00); EBV VIRAL CAPSID AG IGM < 36.00 U/mL (<36.00)
== END ==
LOC: M PLALAB 09:12
PROVIDERS: ATTEND Internal Medicine
DX: B35.1 Tinea unguium (principal); L21.0 Seborrhea capitis; R53.81 Other malaise; R14.0 Abdominal distension (gaseous); M26.69 Other specified disorders of temporomandibular joint; H92.09 Otalgia, unspecified ear; Z86.39 Personal history of other endocrine, nutritional and metabolic disease

== ENCOUNTER → 2024-08-10 | Outpatient (CLI) | payer BC ==
[2024-08-10 10:45] LABS: APPEARANCE, URINE CLEAR (CLEAR); BACTERIA, URINE AUTO NEGATIVE (NEGATIVE); BILIRUBIN, URINE AUTO NEGATIVE (NEGATIVE); BLOOD, URINE BLOOD 2+ (NEGATIVE); COLOR, URINE STRAW (YELLOW); GLUCOSE, URINE (UA) AUTO NEGATIVE (NEGATIVE); KETONE, URINE AUTO NEGATIVE (NEGATIVE); LEUKOCYTE ESTERASE, URINE AUTO NEGATIVE (NEGATIVE); NITRITE, URINE AUTO NEGATIVE (NEGATIVE); PROTEIN, URINE AUTO NEGATIVE (NEGATIVE); RBC, URINE AUTO 0 /HPF (0-3); SPECIFIC GRAVITY URINE AUTO 1.003 (1.002-1.035); SQUAMOUS EPITHELIAL CELL UR AU 0 /HPF (0-6); UROBILINOGEN, URINE AUTO 0.2 mg/dL (0.0-2.0); WBC, URINE AUTO 1 /HPF (0-3)
[2024-08-10 10:53] LABS: BASO % 0.4 % (0.0-1.0); EOS # 0.2 10^3/uL (0.0-0.5); EOS % 3.1 % (0.0-3.0); HEMATOCRIT 40.6 % (36.0-47.0); HEMOGLOBIN 12.9 g/dl (12.0-15.5); LYMPH # 1.8 10^3/uL (1.5-5.0); LYMPH % 34.2 % (24.0-44.0); MEAN CORPUSCULAR HEMOGLOBIN 25.2 pg (27.0-33.0); MEAN CORPUSCULAR HGB CONC 31.8 g/dl (32.0-36.5); MEAN CORPUSCULAR VOLUME 79.5 fl (80.0-96.0); MONO # 0.4 10^3/uL (0.0-0.8); MONO % 7.9 % (2.0-8.0); NEUTROPHILS # 2.8 10^3/uL (1.5-8.5); NEUTROPHILS % 54.2 % (36.0-66.0); PLATELET COUNT, AUTOMATED 255 10^3/uL (150-450); RED BLOOD COUNT 5.11 10^6/uL (4.00-5.40); WHITE BLOOD COUNT 5.2 10^3/uL (4.0-10.0)
[2024-08-10 11:25] LABS: ALBUMIN 3.6 G/DL (3.2-5.2); ALKALINE PHOSPHATASE 94 U/L (35-104); ALT/SGPT 13 U/L (7.0-40); AST/SGOT 10 U/L (<34); BILIRUBIN,TOTAL 0.3 MG/DL (0.3-1.2); BLOOD UREA NITROGEN 8 MG/DL (9-23); CALCIUM LEVEL 8.8 MG/DL (8.5-10.1); CARBON DIOXIDE LEVEL 26 MMOL/L (20-31); CHLORIDE LEVEL 107 MMOL/L (98-107); CHOLESTEROL LEVEL 174 MG/DL (<200); CHOLESTEROL RISK RATIO 4.07 (<5); CREATININE FOR GFR 0.85 MG/DL (0.55-1.30); FREE T4 1.35 NG/DL (0.89-1.76); GLOMERULAR FILTRATION RATE > 60.0 (>60); GLUCOSE, FASTING 89 MG/DL (60-100); HDL CHOLESTEROL 42.7 MG/DL (>40); IRON (FE) 24 UG/DL (50-170); LDL CHOLESTEROL 112.5 MG/DL (<100); NON-HDL-C 131.3 MG/DL; POTASSIUM SERUM 4.2 MMOL/L (3.5-5.1); SODIUM LEVEL 141 MMOL/L (136-145); TOTAL 25(OH) VITAMIN D 18.8 NG/ML (20.0-100.0); TOTAL PROTEIN 6.7 G/DL (5.7-8.2); TRIGLYCERIDES LEVEL 94 MG/DL (<150)
[2024-08-10 11:27] LABS: FREE T3 3.8 PG/ML (2.3-4.2)
== END ==
LOC: M PLALAB 08:34
PROVIDERS: ATTEND Internal Medicine
DX: R68.82 Decreased libido (principal)

== ENCOUNTER → 2024-09-28 | Outpatient (CLI) | payer BC | LOC: M RAD 12:51 | PROVIDERS: ATTEND Physician Assistant Medical | DX: R06.02 Shortness of breath (principal) ==